=== PATIENT | male | born 1945 | race Two or more races ===

== ENCOUNTER 2017-05-18 06:56 | Inpatient (IN) | payer BC, MEDICARE ==
[~2017-05-18] VITALS: Ht 154.9 cm; Wt 63.7 kg
[~2017-05-18 06:56] MED LIST: AMLO10TA PO; ASPI-611 PO; DOXY-257 PO; FURO80TA87 PO; GLIM1TAB46 PO; HYDR-3965 PO; HYDR-4069 PO; LABE200T PO; MYCO360T PO; OMEP20CA10 PO; POTA20TA10 PO; PRED5TAB PO; SIMV10TA2 PO; TACR1CAP28 PO; ZAR2.5T PO
[2017-05-18] MEDS: albuterol 2.5 MG/3 ML nebule CONTNEB PRN ×2 (07:27→12:08)
[2017-05-18 07:50] LABS: ABG BASE EXCESS -2.4 mmol/L (-2.0-3.0); ABG HCO3 21.9 mmol/L (22.0-26.0); ABG OXYGEN SATURATION 91.4 % (95-98); ABG PCO2 (T) 35.6 mmHg (35.0-48.0); ABG PH (T) 7.406 (7.350-7.450); ABG PO2 (T) 65.4 mmHg (83-108); ALLEN'S TEST Positive; FCOHb 0.3 % (0.5-1.5); FLOW 4 L/min; FMetHb 0.3 % (0.3-1.12); FO2Hb 90.9 % (94-100); TOTAL HEMOGLOBIN 10.3 G/dl (14.0-18.0)
[2017-05-18] MEDS ORDERED: CARV6.253 PO (10:05)
[2017-05-18] MEDS ORDERED: SPIR25TA3 PO (10:05)
[2017-05-18] MEDS ORDERED: INSU100V9 SQ (10:05)
[2017-05-18] MEDS ORDERED: INSU100C10 SQ (10:05)
[2017-05-18] MEDS ORDERED: TRAM50TA2 PO (10:05)
[2017-05-18] MEDS ORDERED: GLIM4TAB79 PO (10:05)
[2017-05-18] MEDS ORDERED: POTA20TA10 PO (10:05)
[2017-05-18] MEDS ORDERED: ondansetron/PF 4mg/2ml inj IV ONE (11:55)
[2017-05-18] MEDS ORDERED: potassium Cl 20 mEq SR tablet PO PRN (12:40)
[2017-05-18] MEDS ORDERED: potassium Cl 40MEQ/NS 500ml 500 ML IV PRN ×2 (12:40)
[2017-05-18] MEDS ORDERED: magnesium 2GM in 50ml NS 50 ML IV PRN (12:40)
[2017-05-18] MEDS ORDERED: magnesium 4gm in 100ml NS 100 ML IV PRN (12:40)
[2017-05-18] MEDS ORDERED: dextrose 50%-water 50ml dispensing syringe IV PRN ×2 (12:40)
[2017-05-18] MEDS ORDERED: glucagon, human recombinant 1mg kit SUBCUT PRN (12:40)
[2017-05-18] MEDS ORDERED: ondansetron/PF 4mg/2ml inj IV PRN (12:40)
[2017-05-18] MEDS ORDERED: dextrose ORAL solution 15 GM/59 ML bottle PO PRN ×2 (12:40)
[2017-05-18] MEDS ORDERED: hydrALAZINE 20mg/ml inj. IV PRN (12:40)
[2017-05-18] MEDS ORDERED: diphenhydrAMINE 50 mg/ml inj IV PRN (12:40)
[2017-05-18] MEDS ORDERED: bisacodyl 10mg suppository rectal RC PRN (12:40)
[2017-05-18] MEDS ORDERED: HYDROcodone/acetaminophen 5mg/325mg tablet PO PRN (12:40)
[2017-05-18] MEDS ORDERED: HYDROcodone/acetaminophen 10/325mg tab PO PRN (12:40)
[2017-05-18] MEDS ORDERED: morphine 4 MG/ML inj SYRINge IV PRN ×2 (12:40)
[2017-05-18] MEDS ORDERED: magnesium Cl slow-release 64mg tablet PO PRN (12:40)
[2017-05-18] MEDS ORDERED: acetaminophen 325mg tablet PO PRN ×2 (12:40)
[2017-05-18] MEDS ORDERED: MESSAGE TO PHARMACY PO ONE (12:40)
[2017-05-18 13:14] LABS: BASOPHILS % (AUTO) 0.2 % (0-1); EOSINOPHILS # (AUTO) 0.2 X10'3 (0-0.9); EOSINOPHILS % (AUTO) 2.3 % (0-6); HEMATOCRIT 26.4 % (42.0-52.0); HEMOGLOBIN 9.2 g/dl (14.0-17.9); LYMPHOCYTES # (AUTO) 0.7 X10'3 (1.1-4.8); LYMPHOCYTES % (AUTO) 8.4 % (21-51); MEAN CORPUSCULAR HEMOGLOBIN 31.6 PG (27.0-31.0); MEAN CORPUSCULAR HGB CONC 34.7 % (33.0-36.5); MEAN CORPUSCULAR VOLUME 91.1 FL (78-98); MEAN PLATELET VOLUME 6.1 FL (7.4-10.4); MONOCYTES # (AUTO) 1.1 X10'3 (0-0.9); MONOCYTES % (AUTO) 13.3 % (2-12); NEUTROPHILS # (AUTO) 6.5 X10'3 (1.8-7.7); NEUTROPHILS % (AUTO) 75.8 % (42-75); PLATELET COUNT 261 X10'3 (140-440); RED CELL DISTRIBUTION WIDTH 13.3 % (11.5-14.5); WHITE BLOOD COUNT 8.6 X10'3 (4.5-11.0)
[2017-05-18 13:26] LABS: HEMOGLOBIN A1C 9.4 % (4.5-6.2)
[2017-05-18 13:36] LABS: ALANINE AMINOTRANSFERASE 17 U/L (12-78); ALBUMIN 2.9 G/DL (3.4-5.0); ALBUMIN/GLOBULIN RATIO 0.8 (1.1-1.5); ALKALINE PHOSPHATASE 85 IU/L (46-116); ANION GAP 9 (8-16); ASPARTATE AMINO TRANSFERASE 14 U/L (10-37); BILIRUBIN,TOTAL 0.8 MG/DL (0.1-1.0); BLOOD UREA NITROGEN 49 MG/DL (7-18); BUN/CREATININE RATIO 26.8 (5.4-32.0); CALCIUM 8.8 MG/DL (8.5-10.1); CHLORIDE 102 MMOL/L (99-107); CREATININE 1.83 MG/DL (0.60-1.10); GLUCOSE 98 MG/DL (70-104); MAGNESIUM 1.9 MG/DL (1.5-2.4); POTASSIUM 4.5 MMOL/L (3.5-5.1); SODIUM 135 MMOL/L (135-145); TOTAL PROTEIN 6.7 G/DL (6.4-8.2); eGFR 37 ML/MIN
[2017-05-18] MEDS: piperacillin/tazo 3.375gm/50ml 50 ML IV SCH ×3 (13:36→22:03)
[2017-05-18] MEDS: furosemide 10 MG/1 ML 10ml inj IV SCH ×2 (13:37→21:06)
[2017-05-18] MEDS: normal saline 1000ml 1,000 ML IV SCH (13:37)
[2017-05-18 14:08] LABS: CLARITY,URINE CLEAR (Clear); COLOR,URINE YELLOW (Yellow); GLUCOSE, URINE NEGATIVE (Neg); KETONES,URINE NEGATIVE (Neg); LEUKOCYTE ESTERASE ,URINE NEGATIVE (Neg); NITRITES, URINE NEGATIVE (Neg); OCCULT BLOOD,URINE SMALL (Neg); PH,URINE 5.5 (4.8-8.0); PROTEIN,URINE >=300 mg/dl (Neg); UROBILINOGEN,URINE 0.2 E.U/dL (0.2-1.0)
[2017-05-18 14:09] LABS: UA COLLECTION TYPE URINAL
[2017-05-18 14:18] LABS: SQUAMOUS EPITHELIAL CELL,UR FEW /LPF (FEW)
[2017-05-18 14:19] LABS: BACTERIA,URINE FEW /HPF (Neg); RBC,URINE 0-2 /HPF (0-2); WBC,URINE 0-4 /HPF (0-4)
[2017-05-18] MEDS: K and/or MAG REPLACEMENT MC SCH (14:59)
[2017-05-18] MEDS: ipratropium/albuterol 3ml nebule NEB SCH ×2 (15:00→22:42)
[2017-05-18] MEDS: vancomycin inj 1,250 MG in normal saline 250ml IV soln 250 ML IV SCH (15:40)
[2017-05-18] MEDS: hydrALAZINE 25 MG tablet PO SCH (18:19)
[2017-05-18 20:00] VITALS: BP 186/50
[2017-05-18] MEDS: insulin glargine (Lantus) pen - multi-dose SQ SCH (21:00)
[2017-05-18] MEDS ORDERED: temazepam 15mg capsule PO PRN (21:00)
[2017-05-18] MEDS: carvedilol 6.25mg tablet PO SCH (21:05)
[2017-05-18] MEDS: atorvastatin 10mg tablet PO SCH (21:05)
[2017-05-18] MEDS: spironolactone 25 MG tablet PO SCH (21:05)
[2017-05-18] MEDS: MYFORTIC 360 MG PO SCH (21:46)
[2017-05-18] MEDS: tacrolimus anhydrous 1mg capsule PO SCH (21:48)
[2017-05-18 23:00] VITALS: BP 164/56
[2017-05-19] MEDS: hydrALAZINE 25 MG tablet PO SCH ×3 (00:35→16:11)
[2017-05-19] MEDS: piperacillin/tazo 3.375gm/50ml 50 ML IV SCH ×3 (02:27→13:26)
[2017-05-19 03:00] VITALS: BP 174/50
[2017-05-19] MEDS: ipratropium/albuterol 3ml nebule NEB SCH ×7 (03:00→23:55)
[2017-05-19 06:34] LABS: ALANINE AMINOTRANSFERASE 16 U/L (12-78); ALBUMIN 2.7 G/DL (3.4-5.0); ALBUMIN/GLOBULIN RATIO 0.7 (1.1-1.5); ALKALINE PHOSPHATASE 78 IU/L (46-116); ANION GAP 12 (8-16); ASPARTATE AMINO TRANSFERASE 15 U/L (10-37); BLOOD UREA NITROGEN 45 MG/DL (7-18); BUN/CREATININE RATIO 22.3 (5.4-32.0); CALCIUM 8.9 MG/DL (8.5-10.1); CHLORIDE 102 MMOL/L (99-107); CHOL/HDL RATIO 3.9 (0.00-4.99); CHOLESTEROL 121 MG/DL (0-200); CREATININE 2.02 MG/DL (0.60-1.10); GLUCOSE 66 MG/DL (70-104); HDL CHOLESTEROL 31 MG/DL (35-60); LDL CHOLESTEROL 73 MG/DL (50-100); MAGNESIUM 1.8 MG/DL (1.5-2.4); PHOSPHORUS 3.8 MG/DL (2.3-4.5); SODIUM 137 MMOL/L (135-145); TOTAL PROTEIN 6.5 G/DL (6.4-8.2); TRIGLYCERIDES 107 MG/DL (20-135); eGFR 33 ML/MIN
[2017-05-19 06:35] LABS: POTASSIUM 3.9 MMOL/L (3.5-5.1)
[2017-05-19 06:49] LABS: BASOPHILS # (AUTO) 0.1 X10'3 (0-0.2); BASOPHILS % (AUTO) 0.6 % (0-1); EOSINOPHILS # (AUTO) 0.3 X10'3 (0-0.9); EOSINOPHILS % (AUTO) 3.5 % (0-6); HEMATOCRIT 26.6 % (42.0-52.0); HEMOGLOBIN 9.5 g/dl (14.0-17.9); LYMPHOCYTES # (AUTO) 0.8 X10'3 (1.1-4.8); LYMPHOCYTES % (AUTO) 9.3 % (21-51); MEAN CORPUSCULAR HEMOGLOBIN 32.1 PG (27.0-31.0); MEAN CORPUSCULAR HGB CONC 35.7 % (33.0-36.5); MEAN CORPUSCULAR VOLUME 89.9 FL (78-98); MONOCYTES # (AUTO) 1.2 X10'3 (0-0.9); MONOCYTES % (AUTO) 13.5 % (2-12); NEUTROPHILS # (AUTO) 6.7 X10'3 (1.8-7.7); NEUTROPHILS % (AUTO) 73.1 % (42-75); PLATELET COUNT 248 X10'3 (140-440); RED BLOOD COUNT 2.96 X10'6 (4.70-6.10); RED CELL DISTRIBUTION WIDTH 12.3 % (11.5-14.5); WHITE BLOOD COUNT 9.1 X10'3 (4.5-11.0)
[2017-05-19 07:00] VITALS: BP 166/50
[2017-05-19] MEDS: MYFORTIC 360 MG PO SCH ×2 (07:27→19:40)
[2017-05-19] MEDS: aspirin 81mg tablet.DR PO SCH (07:28)
[2017-05-19] MEDS: tacrolimus anhydrous 1mg capsule PO SCH ×2 (07:28→19:41)
[2017-05-19] MEDS: amLODIPine 5mg tablet PO SCH (07:28)
[2017-05-19] MEDS: predniSONE 5mg tablet PO SCH (07:28)
[2017-05-19] MEDS: pantoprazole 40mg Tablet.DR PO SCH (07:28)
[2017-05-19] MEDS: carvedilol 6.25mg tablet PO SCH ×2 (07:29→19:39)
[2017-05-19] MEDS: spironolactone 25 MG tablet PO SCH ×2 (07:29→19:40)
[2017-05-19] MEDS: furosemide 10 MG/1 ML 10ml inj IV SCH ×3 (07:34→21:49)
[2017-05-19] MEDS ORDERED: enoxaparin 40mg/0.4ml syringe SUBCUT SCH ×2 (08:00→20:00)
[2017-05-19] MEDS: K and/or MAG REPLACEMENT MC SCH (08:00)
[2017-05-19] MEDS: normal saline 1000ml 1,000 ML IV SCH (09:10)
[2017-05-19] MEDS ORDERED: pneumococcal 23-VAL P-sac vacc 25 mcg/0.5ml vial IMVAC ONE (10:00)
[2017-05-19] MEDS: insulin Lispro (HumaLOG) vial - multi-dose SQ SCH ×3 (10:34→19:56)
[2017-05-19 11:00] VITALS: BP 140/84
[2017-05-19 15:00] VITALS: BP 149/53
[2017-05-19] MEDS: vancomycin inj 1,250 MG in normal saline 250ml IV soln 250 ML IV SCH (16:17)
[2017-05-19 19:00] VITALS: BP 166/65
[2017-05-19] MEDS: lactobacillus rhamnosus 10,000 MMU CELLS/CAPSULE PO SCH (19:39)
[2017-05-19] MEDS: potassium Cl 20 mEq SR tablet PO PRN (19:40)
[2017-05-19] MEDS: clonazePAM 0.5mg tablet PO SCH (19:54)
[2017-05-19] MEDS: insulin glargine (Lantus) pen - multi-dose SQ SCH (21:00)
[2017-05-19] MEDS: atorvastatin 10mg tablet PO SCH (21:49)
[2017-05-19] MEDS: azithromycin 250mg tablet PO SCH (21:50)
[2017-05-19 23:00] VITALS: BP 162/67
[2017-05-20] MEDS: piperacillin/tazo 3.375gm/50ml 50 ML IV SCH ×4 (00:51→23:36)
[2017-05-20] MEDS: hydrALAZINE 25 MG tablet PO SCH ×4 (00:51→23:36)
[2017-05-20] MEDS: potassium Cl 20 mEq SR tablet PO PRN (00:51)
[2017-05-20 03:00] VITALS: BP 107/61
[2017-05-20] MEDS: ipratropium/albuterol 3ml nebule NEB SCH ×4 (03:00→23:23)
[2017-05-20] MEDS: normal saline 1000ml 1,000 ML IV SCH ×2 (04:40→23:18)
[2017-05-20 05:28] LABS: BASOPHILS % (AUTO) 0.5 % (0-1); EOSINOPHILS # (AUTO) 0.4 X10'3 (0-0.9); EOSINOPHILS % (AUTO) 4.7 % (0-6); HEMATOCRIT 25.4 % (42.0-52.0); HEMOGLOBIN 8.8 g/dl (14.0-17.9); LYMPHOCYTES # (AUTO) 1.2 X10'3 (1.1-4.8); LYMPHOCYTES % (AUTO) 13.5 % (21-51); MEAN CORPUSCULAR HEMOGLOBIN 31.7 PG (27.0-31.0); MEAN CORPUSCULAR HGB CONC 34.6 % (33.0-36.5); MEAN CORPUSCULAR VOLUME 91.5 FL (78-98); MEAN PLATELET VOLUME 6.4 FL (7.4-10.4); MONOCYTES # (AUTO) 1.1 X10'3 (0-0.9); MONOCYTES % (AUTO) 11.6 % (2-12); NEUTROPHILS # (AUTO) 6.3 X10'3 (1.8-7.7); NEUTROPHILS % (AUTO) 69.7 % (42-75); PLATELET COUNT 258 X10'3 (140-440); RED BLOOD COUNT 2.78 X10'6 (4.70-6.10); RED CELL DISTRIBUTION WIDTH 12.9 % (11.5-14.5); WHITE BLOOD COUNT 9.1 X10'3 (4.5-11.0)
[2017-05-20 05:30] VITALS: BP 171/48
[2017-05-20 06:28] LABS: ALBUMIN 2.6 G/DL (3.4-5.0); ALBUMIN/GLOBULIN RATIO 0.7 (1.1-1.5); ANION GAP 12 (8-16); ASPARTATE AMINO TRANSFERASE 13 U/L (10-37); BILIRUBIN,TOTAL 0.8 MG/DL (0.1-1.0); BLOOD UREA NITROGEN 49 MG/DL (7-18); CALCIUM 8.5 MG/DL (8.5-10.1); CHLORIDE 100 MMOL/L (99-107); CREATININE 2.33 MG/DL (0.60-1.10); GLUCOSE 106 MG/DL (70-104); MAGNESIUM 1.7 MG/DL (1.5-2.4); POTASSIUM 4.1 MMOL/L (3.5-5.1); SODIUM 136 MMOL/L (135-145); TOTAL CARBON DIOXIDE 24.3 MMOL/L (24-32); TOTAL PROTEIN 6.2 G/DL (6.4-8.2); eGFR 28 ML/MIN
[2017-05-20 06:29] LABS: ALANINE AMINOTRANSFERASE 16 U/L (12-78); ALKALINE PHOSPHATASE 73 IU/L (46-116)
[2017-05-20] MEDS: K and/or MAG REPLACEMENT MC SCH (08:00)
[2017-05-20] MEDS: pantoprazole 40mg Tablet.DR PO SCH (08:08)
[2017-05-20] MEDS: lactobacillus rhamnosus 10,000 MMU CELLS/CAPSULE PO SCH ×2 (08:09→20:31)
[2017-05-20] MEDS: amLODIPine 5mg tablet PO SCH (08:10)
[2017-05-20] MEDS: azithromycin 250mg tablet PO SCH (08:10)
[2017-05-20] MEDS: spironolactone 25 MG tablet PO SCH ×2 (08:11→20:32)
[2017-05-20] MEDS: aspirin 81mg tablet.DR PO SCH (08:11)
[2017-05-20] MEDS: carvedilol 6.25mg tablet PO SCH ×2 (08:11→20:32)
[2017-05-20] MEDS: predniSONE 5mg tablet PO SCH (08:11)
[2017-05-20] MEDS: clonazePAM 0.5mg tablet PO SCH ×2 (08:11→20:32)
[2017-05-20] MEDS: furosemide 10 MG/1 ML 10ml inj IV SCH ×3 (08:12→20:34)
[2017-05-20] MEDS: enoxaparin 40mg/0.4ml syringe SUBCUT SCH (08:12)
[2017-05-20] MEDS: tacrolimus anhydrous 1mg capsule PO SCH ×2 (08:14→20:32)
[2017-05-20] MEDS: MYFORTIC 360 MG PO SCH ×2 (08:14→20:34)
[2017-05-20] MEDS: insulin Lispro (HumaLOG) vial - multi-dose SQ SCH ×3 (10:01→19:15)
[2017-05-20 11:00] VITALS: BP 162/48
[2017-05-20 15:00] VITALS: BP 161/46
[2017-05-20 18:00] VITALS: BP 126/77
[2017-05-20] MEDS: atorvastatin 10mg tablet PO SCH (20:32)
[2017-05-20] MEDS: insulin glargine (Lantus) pen - multi-dose SQ SCH (21:34)
[2017-05-20 22:00] VITALS: BP 175/61
[2017-05-21 02:00] VITALS: BP 173/58
[2017-05-21] MEDS: ipratropium/albuterol 3ml nebule NEB SCH ×6 (03:34→23:28)
[2017-05-21 06:00] VITALS: BP 175/64
[2017-05-21 06:42] LABS: BASOPHILS # (AUTO) 0.1 X10'3 (0-0.2); BASOPHILS % (AUTO) 0.9 % (0-1); EOSINOPHILS # (AUTO) 0.3 X10'3 (0-0.9); EOSINOPHILS % (AUTO) 3.2 % (0-6); HEMATOCRIT 24.8 % (42.0-52.0); HEMOGLOBIN 8.7 g/dl (14.0-17.9); LYMPHOCYTES # (AUTO) 1.2 X10'3 (1.1-4.8); LYMPHOCYTES % (AUTO) 13.4 % (21-51); MEAN CORPUSCULAR HEMOGLOBIN 31.6 PG (27.0-31.0); MEAN CORPUSCULAR HGB CONC 35.2 % (33.0-36.5); MEAN CORPUSCULAR VOLUME 89.9 FL (78-98); MEAN PLATELET VOLUME 6.1 FL (7.4-10.4); MONOCYTES # (AUTO) 0.9 X10'3 (0-0.9); MONOCYTES % (AUTO) 9.6 % (2-12); NEUTROPHILS # (AUTO) 6.5 X10'3 (1.8-7.7); NEUTROPHILS % (AUTO) 72.9 % (42-75); PLATELET COUNT 288 X10'3 (140-440); RED BLOOD COUNT 2.76 X10'6 (4.70-6.10); RED CELL DISTRIBUTION WIDTH 13.1 % (11.5-14.5); WHITE BLOOD COUNT 8.9 X10'3 (4.5-11.0)
[2017-05-21 07:14] LABS: ALANINE AMINOTRANSFERASE 15 U/L (12-78); ALBUMIN 2.6 G/DL (3.4-5.0); ALBUMIN/GLOBULIN RATIO 0.7 (1.1-1.5); ALKALINE PHOSPHATASE 72 IU/L (46-116); ANION GAP 12 (8-16); ASPARTATE AMINO TRANSFERASE 10 U/L (10-37); BILIRUBIN,TOTAL 0.7 MG/DL (0.1-1.0); BLOOD UREA NITROGEN 52 MG/DL (7-18); BUN/CREATININE RATIO 21.8 (5.4-32.0); CALCIUM 8.9 MG/DL (8.5-10.1); CHLORIDE 100 MMOL/L (99-107); CREATININE 2.38 MG/DL (0.60-1.10); GLUCOSE 128 MG/DL (70-104); MAGNESIUM 1.7 MG/DL (1.5-2.4); PHOSPHORUS 3.9 MG/DL (2.3-4.5); SODIUM 136 MMOL/L (135-145); TOTAL CARBON DIOXIDE 24.1 MMOL/L (24-32); TOTAL PROTEIN 6.4 G/DL (6.4-8.2); eGFR 27 ML/MIN
[2017-05-21] MEDS: clonazePAM 0.5mg tablet PO SCH (07:59)
[2017-05-21] MEDS: lactobacillus rhamnosus 10,000 MMU CELLS/CAPSULE PO SCH ×2 (07:59→19:41)
[2017-05-21] MEDS: amLODIPine 5mg tablet PO SCH (07:59)
[2017-05-21] MEDS: pantoprazole 40mg Tablet.DR PO SCH (08:00)
[2017-05-21] MEDS: carvedilol 6.25mg tablet PO SCH ×2 (08:00→19:41)
[2017-05-21] MEDS: azithromycin 250mg tablet PO SCH (08:00)
[2017-05-21] MEDS: hydrALAZINE 25 MG tablet PO SCH ×3 (08:00→23:21)
[2017-05-21] MEDS: K and/or MAG REPLACEMENT MC SCH (08:00)
[2017-05-21] MEDS: aspirin 81mg tablet.DR PO SCH (08:00)
[2017-05-21] MEDS: predniSONE 5mg tablet PO SCH (08:00)
[2017-05-21] MEDS: enoxaparin 40mg/0.4ml syringe SUBCUT SCH (08:01)
[2017-05-21] MEDS: piperacillin/tazo 3.375gm/50ml 50 ML IV SCH ×3 (08:02→23:22)
[2017-05-21] MEDS: spironolactone 25 MG tablet PO SCH ×2 (08:07→19:41)
[2017-05-21] MEDS: tacrolimus anhydrous 1mg capsule PO SCH ×2 (08:07→19:41)
[2017-05-21] MEDS: MYFORTIC 360 MG PO SCH ×2 (08:07→19:42)
[2017-05-21] MEDS: furosemide 10 MG/1 ML 10ml inj IV SCH ×2 (08:21→19:46)
[2017-05-21] MEDS: insulin Lispro (HumaLOG) vial - multi-dose SQ SCH ×3 (09:14→19:55)
[2017-05-21 11:00] VITALS: BP 175/51
[2017-05-21 15:00] VITALS: BP 177/63
[2017-05-21] MEDS ORDERED: VANCOMYCIN LEVEL IV ONE (15:30)
[2017-05-21 18:00] VITALS: BP 148/66
[2017-05-21] MEDS: normal saline 1000ml 1,000 ML IV SCH (20:40)
[2017-05-21] MEDS: atorvastatin 10mg tablet PO SCH (21:38)
[2017-05-21] MEDS: insulin glargine (Lantus) pen - multi-dose SQ SCH (21:46)
[2017-05-21 22:00] VITALS: BP 164/57
[2017-05-22 02:00] VITALS: BP 172/60
[2017-05-22] MEDS: ipratropium/albuterol 3ml nebule NEB SCH ×3 (03:00→11:52)
[2017-05-22 06:00] VITALS: BP 185/60
[2017-05-22 06:19] LABS: BASOPHILS % (AUTO) 0.3 % (0-1); EOSINOPHILS # (AUTO) 0.3 X10'3 (0-0.9); HEMATOCRIT 25.4 % (42.0-52.0); HEMOGLOBIN 8.8 g/dl (14.0-17.9); LYMPHOCYTES # (AUTO) 1.3 X10'3 (1.1-4.8); LYMPHOCYTES % (AUTO) 15.2 % (21-51); MEAN CORPUSCULAR HEMOGLOBIN 31.9 PG (27.0-31.0); MEAN CORPUSCULAR HGB CONC 34.8 % (33.0-36.5); MEAN CORPUSCULAR VOLUME 91.6 FL (78-98); MEAN PLATELET VOLUME 6.2 FL (7.4-10.4); MONOCYTES # (AUTO) 0.8 X10'3 (0-0.9); MONOCYTES % (AUTO) 9.4 % (2-12); NEUTROPHILS % (AUTO) 71.1 % (42-75); PLATELET COUNT 293 X10'3 (140-440); RED BLOOD COUNT 2.77 X10'6 (4.70-6.10); RED CELL DISTRIBUTION WIDTH 13.3 % (11.5-14.5); WHITE BLOOD COUNT 8.5 X10'3 (4.5-11.0)
[2017-05-22 06:46] LABS: ALANINE AMINOTRANSFERASE 14 U/L (12-78); ALBUMIN 2.6 G/DL (3.4-5.0); ALBUMIN/GLOBULIN RATIO 0.7 (1.1-1.5); ALKALINE PHOSPHATASE 70 IU/L (46-116); ANION GAP 12 (8-16); ASPARTATE AMINO TRANSFERASE 12 U/L (10-37); BILIRUBIN,TOTAL 0.7 MG/DL (0.1-1.0); BLOOD UREA NITROGEN 52 MG/DL (7-18); BUN/CREATININE RATIO 21.8 (5.4-32.0); CALCIUM 8.9 MG/DL (8.5-10.1); CHLORIDE 97 MMOL/L (99-107); CREATININE 2.39 MG/DL (0.60-1.10); GLUCOSE 161 MG/DL (70-104); MAGNESIUM 1.7 MG/DL (1.5-2.4); PHOSPHORUS 3.6 MG/DL (2.3-4.5); POTASSIUM 3.6 MMOL/L (3.5-5.1); SODIUM 134 MMOL/L (135-145); TOTAL CARBON DIOXIDE 25.1 MMOL/L (24-32); TOTAL PROTEIN 6.3 G/DL (6.4-8.2); eGFR 27 ML/MIN
[2017-05-22] MEDS: predniSONE 5mg tablet PO SCH (07:46)
[2017-05-22] MEDS: spironolactone 25 MG tablet PO SCH (07:46)
[2017-05-22] MEDS: carvedilol 6.25mg tablet PO SCH (07:46)
[2017-05-22] MEDS: amLODIPine 5mg tablet PO SCH (07:46)
[2017-05-22] MEDS: pantoprazole 40mg Tablet.DR PO SCH (07:46)
[2017-05-22] MEDS: lactobacillus rhamnosus 10,000 MMU CELLS/CAPSULE PO SCH (07:46)
[2017-05-22] MEDS: azithromycin 250mg tablet PO SCH (07:46)
[2017-05-22] MEDS: aspirin 81mg tablet.DR PO SCH (07:47)
[2017-05-22] MEDS: hydrALAZINE 25 MG tablet PO SCH (07:47)
[2017-05-22] MEDS: enoxaparin 40mg/0.4ml syringe SUBCUT SCH (07:48)
[2017-05-22] MEDS: furosemide 10 MG/1 ML 10ml inj IV SCH (07:48)
[2017-05-22] MEDS: piperacillin/tazo 3.375gm/50ml 50 ML IV SCH (07:49)
[2017-05-22] MEDS: K and/or MAG REPLACEMENT MC SCH (07:50)
[2017-05-22] MEDS: MYFORTIC 360 MG PO SCH (07:51)
[2017-05-22] MEDS: tacrolimus anhydrous 1mg capsule PO SCH (07:51)
[2017-05-22] MEDS: insulin Lispro (HumaLOG) vial - multi-dose SQ SCH ×2 (09:56→13:59)
[2017-05-22 11:00] VITALS: BP 181/57
[2017-05-22] MEDS ORDERED: LACT1CAP26 PO (12:00)
[2017-05-22] MEDS ORDERED: CLON0.1T PO (12:00)
[2017-05-22] MEDS ORDERED: AMOX-419 PO (12:00)
[2017-05-22] MEDS ORDERED: CLON0.5T4 PO (12:00)
[2017-05-22] MEDS ORDERED: AZIT500T5 PO (12:02)
[2017-05-22] MEDS ORDERED: CARV-50 PO (12:05)
[2017-05-22] MEDS ORDERED: clonazePAM 0.5mg tablet PO SCH (21:00)
== END 2017-05-22 14:25 | disposition home health service (06) | DRG 193 ==
LOC: ER 06:56 → ED HOLD 12:40 → EDBEDREQ 17:21 → CMPBEDREQ 19:36 → PCU 3S 19:48
PROVIDERS: ADMIT Family Medicine; ATTEND Family Medicine
PROC: BW241ZZ Computerized Tomography (CT Scan) of Chest and Abdomen using Low Osmolar Contrast (ICD-10-PCS; principal; 2017-05-18)
DX: J18.1 Lobar pneumonia, unspecified organism (principal); N18.6 End stage renal disease; J96.91 Respiratory failure, unspecified with hypoxia; I13.2 Hypertensive heart and chronic kidney disease with heart failure and with stage 5 chronic kidney disease, or end stage renal disease; I69.351 Hemiplegia and hemiparesis following cerebral infarction affecting right dominant side; Z94.0 Kidney transplant status; E11.21 Type 2 diabetes mellitus with diabetic nephropathy; I50.9 Heart failure, unspecified; D63.1 Anemia in chronic kidney disease; N05.9 Unspecified nephritic syndrome with unspecified morphologic changes; G25.3 Myoclonus; E11.22 Type 2 diabetes mellitus with diabetic chronic kidney disease; E78.5 Hyperlipidemia, unspecified; J40 Bronchitis, not specified as acute or chronic; Z79.899 Other long term (current) drug therapy; Z23 Encounter for immunization
CPT/HCPCS: 36415; 36600; 71045; 71250; 80053; 80061; 80197; 81001; 82542; 82803; 82948; 83036; 83735; 83880; 84100; 84484; 85018; 85025; 87070; 87502; 87503; 90732; 93306; 94640; 94760; 96374; 97110; 97116; 97162; 97530; 99291; J1650; J1815; J1940; J2405; J2543; J3370; J7030; J7507; J7512

== ENCOUNTER 2018-05-06 06:54 | Day surgery (SDC) | payer MEDICARE, MEDICAID ==
[~2018-05-06] VITALS: Ht 157.5 cm; Wt 61.4 kg
[~2018-05-06 06:54] MED LIST changes: +AZIT500T5 PO; +CARV-50 PO; +CLON0.1T PO; +CLON0.5T12 PO; -DOXY-257 PO; -GLIM1TAB46 PO; +GLIM4TAB79 PO; -HYDR-3965 PO; +INSU100C10 SQ; +INSU100V9 SQ; -LABE200T PO; +LACT1CAP26 PO; +SPIR25TA5 PO; +TRAM50TA2 PO; -ZAR2.5T PO
[2018-05-06] MEDS ORDERED: METO-292 PO (07:37)
[2018-05-06] MEDS ORDERED: ATOR40TA PO (07:37)
[2018-05-06] MEDS ORDERED: METO100T14 PO (07:37)
[2018-05-06] MEDS ORDERED: LACT1CAP65 PO (07:37)
[2018-05-06] MEDS ORDERED: ALLO100T PO (07:37)
[2018-05-06] MEDS ORDERED: SYN0.088T PO (07:37)
[2018-05-06] MEDS ORDERED: FOLI0.8T7 PO (07:39)
[2018-05-06] MEDS ORDERED: PHO667C PO (07:39)
[2018-05-06 08:00] VITALS: BP 147/38
[2018-05-06 09:00] VITALS: BP 137/72
[2018-05-06] MEDS ORDERED: LIDOcaine 1% 30ml preserv. free vial SQ ONE (09:00)
[2018-05-06 09:15] VITALS: BP 142/70
[2018-05-06 09:20] VITALS: BP 132/66
[2018-05-06 09:30] VITALS: BP 150/59
[2018-05-06 09:45] VITALS: BP 152/45
[2018-05-06 11:43] LABS: GLUCOSE,BODY FLUID 129 MG/DL
[2018-05-06 11:45] LABS: LDH,BODY FLUID 152 U/L
[2018-05-06 12:09] LABS: LYMPHOCYTES,BODY FLUID 69 %; MONOCYTES,BODY FLUID 18 %; NEUTROPHILS,BODY FLUID 13 %
[2018-05-06 12:10] LABS: BF RBC COUNT 48006 /CU MM; BF WBC COUNT 236 /CU MM (0-1000); BFAPPEAR BLOODY; BFCOLOR RED; BFVOLUME 45 ML
== END 2018-05-06 09:54 | disposition home or self-care (01) ==
LOC: SSTAY O 06:54
PROVIDERS: ATTEND Radiology Diagnostic Radiology
DX: J90 Pleural effusion, not elsewhere classified (principal); I12.0 Hypertensive chronic kidney disease with stage 5 chronic kidney disease or end stage renal disease; E11.22 Type 2 diabetes mellitus with diabetic chronic kidney disease; N18.6 End stage renal disease; E11.21 Type 2 diabetes mellitus with diabetic nephropathy; E78.5 Hyperlipidemia, unspecified; Z94.0 Kidney transplant status; Z79.899 Other long term (current) drug therapy; Z79.4 Long term (current) use of insulin
CPT/HCPCS: 32555; 71045; 82945; 83615; 84157; 87070; 88341; 88342; 89051; C1729; J3490; 36907; 88108; 88305

== ENCOUNTER 2018-06-29 07:17 | Day surgery (SDC) | payer MEDICARE, MEDICAID ==
[~2018-06-29] VITALS: Ht 162.6 cm; Wt 60.6 kg
[~2018-06-29 07:17] MED LIST changes: +ALLO100T PO; -AMLO10TA PO; +ATOR40TA PO; -AZIT500T5 PO; -CARV-50 PO; -CLON0.1T PO; -CLON0.5T12 PO; +FOLI0.8T7 PO; -FURO80TA87 PO; -GLIM4TAB79 PO; -LACT1CAP26 PO; +LACT1CAP65 PO; +LIDOcaine 1% 30ml preserv. free vial SQ STA; +METO-292 PO; +METO100T14 PO; +PHO667C PO; -POTA20TA10 PO; -SIMV10TA2 PO; -SPIR25TA5 PO; +SYN0.088T PO; -TRAM50TA2 PO
[2018-06-29 08:00] VITALS: BP 172/49
[2018-06-29 09:40] VITALS: BP 172/49
[2018-06-29 09:47] VITALS: BP 174/60
[2018-06-29 10:02] VITALS: BP 162/53
[2018-06-29 10:17] VITALS: BP 175/61
[2018-06-29 10:32] VITALS: BP 168/61
== END 2018-06-29 10:50 | disposition home or self-care (01) ==
LOC: SSTAY O 07:17
PROVIDERS: ATTEND Radiology Vascular & Interventional Radiology
DX: J90 Pleural effusion, not elsewhere classified (principal); E11.22 Type 2 diabetes mellitus with diabetic chronic kidney disease; N18.6 End stage renal disease; I12.0 Hypertensive chronic kidney disease with stage 5 chronic kidney disease or end stage renal disease; E78.5 Hyperlipidemia, unspecified; I69.354 Hemiplegia and hemiparesis following cerebral infarction affecting left non-dominant side; Z98.890 Other specified postprocedural states; Z94.0 Kidney transplant status; Z79.899 Other long term (current) drug therapy; Z79.4 Long term (current) use of insulin; Z79.82 Long term (current) use of aspirin
CPT/HCPCS: 32555; 71045; C1729; J3490; 88108; 88305

== ENCOUNTER 2018-09-23 06:46 | Day surgery (SDC) | payer MEDICARE, MEDICAID ==
[2018-09-23] VITALS (10 sets, daily range): BP systolic 145–178; BP diastolic 40–61
[~2018-09-23] VITALS: Ht 154.9 cm; Wt 58.0 kg
[~2018-09-23 06:46] MED LIST changes: -LIDOcaine 1% 30ml preserv. free vial SQ STA; -OMEP20CA10 PO; +OMEP20CA11 PO
[2018-09-23] MEDS ORDERED: normal saline 1,000 ML IV SCH (07:20)
[2018-09-23] MEDS ORDERED: diphenhydrAMINE 25mg capsule PO PRN (07:20)
[2018-09-23 07:52] LABS: BASOPHILS # (AUTO) 0.1 X10'3 (0-0.2); BASOPHILS % (AUTO) 0.8 % (0-1); EOSINOPHILS # (AUTO) 0.3 X10'3 (0-0.9); EOSINOPHILS % (AUTO) 4.3 % (0-6); HEMATOCRIT 38.4 % (42.0-52.0); HEMOGLOBIN 12.8 g/dl (14.0-17.9); LYMPHOCYTES # (AUTO) 1.3 X10'3 (1.1-4.8); LYMPHOCYTES % (AUTO) 16.5 % (21-51); MEAN CORPUSCULAR HEMOGLOBIN 33.6 PG (27.0-31.0); MEAN CORPUSCULAR HGB CONC 33.4 g/dL (33.0-36.5); MEAN CORPUSCULAR VOLUME 100.5 FL (78-98); MEAN PLATELET VOLUME 7.2 FL (7.4-10.4); MONOCYTES # (AUTO) 0.9 X10'3 (0-0.9); MONOCYTES % (AUTO) 11.4 % (2-12); NEUTROPHILS # (AUTO) 5.1 X10'3 (1.8-7.7); PLATELET COUNT 225 X10'3 (140-440); RED BLOOD COUNT 3.82 X10'6 (4.70-6.10); WHITE BLOOD COUNT 7.6 X10'3 (4.5-11.0)
[2018-09-23 08:00] LABS: ALBUMIN 3.4 G/DL (3.4-5.0); ANION GAP 5 (8-16); BLOOD UREA NITROGEN 26 MG/DL (7-18); BUN/CREATININE RATIO 6.7 (5.4-32.0); CHLORIDE 100 MMOL/L (99-107); MAGNESIUM 2.1 MG/DL (1.5-2.4); POTASSIUM 4.4 MMOL/L (3.5-5.1); SODIUM 139 MMOL/L (135-145); TOTAL CARBON DIOXIDE 33.6 MMOL/L (24-32); eGFR 15 ML/MIN
[2018-09-23 08:01] LABS: GLUCOSE 85 MG/DL (70-104)
[2018-09-23] MEDS ORDERED: iohexol 350MG/ML 100ml bottle IV ONE (08:58)
[2018-09-23] MEDS ORDERED: fentaNYL/PF 50MCG/1 ML 2ML syringe ONE (08:58)
[2018-09-23] MEDS ORDERED: midazolam 2 mg/2 ml injection ONE (08:58)
[2018-09-23] MEDS ORDERED: LIDOcaine 1% (10mg/ml)w/preservative injection 20ml MDV ONE (08:58)
[2018-09-23] MEDS ORDERED: iohexol 350 MG/ML 50ML vial IV ONE (08:58)
== END 2018-09-23 13:40 | disposition home or self-care (01) ==
LOC: SSTAY O 06:46
PROVIDERS: ATTEND Internal Medicine Cardiovascular Disease
DX: I25.10 Atherosclerotic heart disease of native coronary artery without angina pectoris (principal); I25.82 Chronic total occlusion of coronary artery; I12.0 Hypertensive chronic kidney disease with stage 5 chronic kidney disease or end stage renal disease; N18.6 End stage renal disease; I27.20 Pulmonary hypertension, unspecified; Z99.2 Dependence on renal dialysis; Z87.891 Personal history of nicotine dependence; Z79.899 Other long term (current) drug therapy
CPT/HCPCS: 36415; 80048; 82948; 83735; 85025; 85610; 93005; 93461; 99152; 99153; C1760; C1769; C1894; J1644; J2001; J2250; J3010; J7030; Q9967; A4620; A6258